=== PATIENT | male | born 1945 | race Caucasian/White ===

== ENCOUNTER → 2016-06-11 | Outpatient (CLI) | payer OTHER ==
[~2016-06-11] MED LIST: AMLO-511 PO; ASPI-1093 PO; ATOR20TA86 PO; CHOL200016 PO; LOSA50TA37 PO; METO50 PO; TAMS0.4C32 PO; VITA-328 PO
== END | disposition home or self-care (01) ==
LOC: RADMN 08:20
PROVIDERS: ATTEND Family Medicine
DX: M50.220 Other cervical disc displacement, mid-cervical region, unspecified level (principal); M25.78 Osteophyte, vertebrae; M51.24 Other intervertebral disc displacement, thoracic region; M48.02 Spinal stenosis, cervical region; M48.03 Spinal stenosis, cervicothoracic region
CPT/HCPCS: 72141

== ENCOUNTER → 2016-12-09 | Outpatient (CLI) | payer OTHER | END | disposition home or self-care (01) | LOC: RADPV 08:23 | PROVIDERS: ATTEND Orthopaedic Surgery | DX: M17.11 Unilateral primary osteoarthritis, right knee (principal) ==

== ENCOUNTER → 2016-12-30 | Outpatient (CLI) | payer OTHER | END | disposition home or self-care (01) | LOC: RADPV 13:16 | PROVIDERS: ATTEND Orthopaedic Surgery | DX: I70.213 Atherosclerosis of native arteries of extremities with intermittent claudication, bilateral legs (principal) | CPT/HCPCS: 93925 ==

== ENCOUNTER → 2017-01-26 | Outpatient (CLI) | payer OTHER ==
[~2017-01-26] MED LIST changes: -ASPI-1093 PO; +ASPI-1182 PO
== END | disposition home or self-care (01) ==
LOC: RADPV 08:12
PROVIDERS: ATTEND Family Medicine
DX: Z01.818 Encounter for other preprocedural examination (principal); I70.0 Atherosclerosis of aorta; I10 Essential (primary) hypertension
CPT/HCPCS: 71020

== ENCOUNTER → 2017-04-05 | Outpatient (CLI) | payer OTHER ==
[~2017-04-05] MED LIST changes: +METF500T4 PO; +OMEP20 PO; +VITA150T PO
== END | disposition home or self-care (01) ==
LOC: RADPV 09:45
PROVIDERS: ATTEND Orthopaedic Surgery
DX: Z09 Encounter for follow-up examination after completed treatment for conditions other than malignant neoplasm (principal); R60.9 Edema, unspecified; M25.461 Effusion, right knee; Z96.651 Presence of right artificial knee joint

== ENCOUNTER → 2017-04-12 | Outpatient (CLI) | payer OTHER ==
[~2017-04-12] VITALS: Ht 177.8 cm; Wt 67.7 kg
[~2017-04-12] MED LIST changes: +LIDOCAINE HCL 2% 5 ML JELLY TP ONE
[2017-04-12 10:02] VITALS: BP 118/63
== END | disposition home or self-care (01) ==
LOC: HBOWC 09:28
PROVIDERS: ATTEND Surgery Plastic and Reconstructive Surgery
DX: S81.001D Unspecified open wound, right knee, subsequent encounter (principal); E11.9 Type 2 diabetes mellitus without complications; E78.5 Hyperlipidemia, unspecified; I10 Essential (primary) hypertension; Z96.651 Presence of right artificial knee joint; X58.XXXD Exposure to other specified factors, subsequent encounter
CPT/HCPCS: 11042

== ENCOUNTER → 2017-05-17 | Outpatient (CLI) | payer OTHER ==
[~2017-05-17] MED LIST changes: -LIDOCAINE HCL 2% 5 ML JELLY TP ONE
== END | disposition home or self-care (01) ==
LOC: RADPV 10:21
PROVIDERS: ATTEND Family Medicine
DX: R07.81 Pleurodynia (principal)
CPT/HCPCS: 71101